=== PATIENT | male | born 1985 | race Caucasian/White ===

== ENCOUNTER 2016-11-06 16:57 | Emergency (ER) | payer MEDICAID ==
[~2016-11-06] VITALS: Ht 180.3 cm; Wt 83.3 kg
[2016-11-06 16:59] VITALS: BP 123/76
[2016-11-06] MEDS ORDERED: SERT100T5 PO (17:17)
[2016-11-06] MEDS ORDERED: HYDROcodone/APAP 5/325 TABLET ONE (17:25)
[2016-11-06] MEDS ORDERED: HYDROcodone/APAP 5/325 TABLET PO ONE (17:30)
== END 2016-11-06 18:25 | disposition home or self-care (01) ==
LOC: ED 17:55
DX: S42.021A Displaced fracture of shaft of right clavicle, initial encounter for closed fracture (principal); V19.9XXA Pedal cyclist (driver) (passenger) injured in unspecified traffic accident, initial encounter; Y93.55 Activity, bike riding; Y92.410 Unspecified street and highway as the place of occurrence of the external cause; Y99.8 Other external cause status
CPT/HCPCS: 99284